=== PATIENT | female | born 1950 | race American Indian/Alaskan Native ===

== ENCOUNTER 2016-12-23 23:19 | Emergency (ER) | payer OTHER ==
[2016-12-24 00:02] VITALS: BP 156/90; PULSE 80; TEMP 98.6; BMI 31.1
[2016-12-24] MEDS ORDERED: ALBUTEROL SO4 2.5/IPRATROPIUM 0.5 INH SOL 3 ML VIAL.NEB. NEB ONE ×4 (01:03→04:50)
--- NOTE | 2016-12-24 01:40 | PDOC ---
History of Present Illness <Tina Ghosh - Last Filed: 12/24/16 01:40> - General History Source: Patient Exam Limitations: No Limitations - History of Present Illness Initial Comments: 12/24/16 01:41 Patient is a 66 year old female with significant past medical history of NIDDM and hypertension who presents to the ED with son complaining of cough, nasal congestion, chest congestion and SOB. Patient reports difficulty taking a deep breath secondary to coughing and sneezing. As per son the patient has been taking Robitussin at home with minimal relief. He notes that the patient is experiencing wheezing during the night. She denies fever, chills, nausea, vomiting, diarrhea and constipation. Surgical hx: none Allergies: none <Gini Sifuentes - Last Filed: 12/24/16 01:41> <Mulu Rivera - Last Filed: 12/24/16 06:43> - General Chief Complaint: Respiratory Stated Complaint: COLD Time Seen by Provider: 12/24/16 00:34 Past History - Past Medical History Diabetes: Yes (NIDDM) HTN: Yes - Psycho/Social/Smoking Cessation Hx Anxiety: No Suicidal Ideation: No Smoking Status: No Smoking History: Never smoked Number of Cigarettes Smoked Daily: 0 Hx Alcohol Use: No Substance Use Type: None <Tina Ghosh - Last Filed: 12/24/16 01:40> <Gini Sifuentes - Last Filed: 12/24/16 01:41> <Mulu Rivera - Last Filed: 12/24/16 06:43> - Past Medical History Allergies/Adverse Reactions: Allergies Allergy/AdvReac Type Severity Reaction Status Date / Time No Known Allergies Allergy Verified 12/23/16 23:35 Home Medications: Ambulatory Orders Ascorbic Acid [Vitamin C] 0 mg PO DAILY 11/21/14 Aspirin [ASA -] 81 mg PO DAILY 11/21/14 Cholecalciferol (Vitamin D3) [Vitamin D] 0 unit PO DAILY 11/21/14 Enalapril Maleate [Vasotec] 20 mg PO DAILY 11/21/14 Hydrochlorothiazide [Hctz -] 25 mg PO DAILY 11/21/14 Metformin HCl [Glucophage] 1,000 mg PO BID 11/21/14 Metoprolol Tartrate [Lopressor -] 25 mg PO BID 11/21/14 Pyridoxine HCl [Vitamin B-6] 0 mg PO DAILY 11/21/14 Ranitidine HCl 150 mg PO BID 11/21/14 Simvastatin [Zocor -] 20 mg PO HS 11/21/14 Review of Systems - Review of Systems Able to Perform ROS?: Yes Comments:: 12/24/16 01:41 CONSTITUTIONAL: Absent: fever, chills, diaphoresis, generalized weakness, malaise, loss of appetite HEENT: Present: nasal congestion Absent: rhinorrhea, throat pain, throat swelling, difficulty swallowing, mouth swelling, ear pain, eye pain, visual Changes CARDIOVASCULAR: Absent: chest pain, syncope, palpitations, irregular heart rate, lightheadedness , peripheral edema RESPIRATORY: Present: cough, SOB, wheezing, chest congestion Absent: dyspnea with exertion, orthopnea, stridor, hemoptysis GASTROINTESTINAL: Absent: abdominal pain, abdominal distension, nausea, vomiting, diarrhea, constipation, melena, hematochezia GENITOURINARY: Absent: dysuria, frequency, urgency, hesitancy, hematuria, flank pain, genital pain MUSCULOSKELETAL: Absent: myalgia, arthralgia, joint swelling SKIN: Absent: rash, itching, pallor HEMATOLOGIC/IMMUNOLOGIC: Absent: easy bleeding, easy bruising, lymphadenopathy, frequent infections ENDOCRINE: Absent: unexplained weight gain, unexplained weight loss, heat intolerance, cold intolerance NEUROLOGIC: Absent: headache, focal weakness or paresthesias, dizziness, unsteady gait, seizure, mental status changes, bladder or bowel incontinence PSYCHIATRIC: Absent: anxiety, depression, suicidal or homicidal ideation, hallucinations. <Gini Sifuentes - Last Filed: 12/24/16 01:41> *Physical Exam - Vital Signs Last Vital Signs Temp Pulse Resp BP Pulse Ox 98.6 F 80 18 156/90 96 12/23/16 23:35 12/23/16 23:35 12/23/16 23:35 12/23/16 23:35 12/23/16 23:35 <Tina Ghosh - Last Filed: 12/24/16 01:40> - Vital Signs Last Vital Signs Temp Pulse Resp BP Pulse Ox 98.6 F 80 18 156/90 96 12/23/16 23:35 12/23/16 23:35 12/23/16 23:35 12/23/16 23:35 12/23/16 23:35 - Physical Exam Comments: 12/24/16 01:42 GENERAL: Well developed, well nourished. Awake and alert. No acute distress. HEENT: Normocephalic, atraumatic. PERRLA, EOMI. No conjunctival pallor. Sclera are non- icteric. Moist mucous membranes. Oropharynx is clear. NECK: Supple. Full ROM. No JVD. Carotid pulses 2+ and symmetric, without bruits. No thyromegaly. No lymphadenopathy. CARDIOVASCULAR: Regular rate and rhythm. No murmurs, rubs, or gallops. Distal pulses are 2+ and symmetric. PULMONARY: No evidence of respiratory distress. Lungs clear to auscultation bilaterally. No wheezing, rales or rhonchi. ABDOMINAL: Soft. Non-tender. Non-distended. No rebound or guarding. No organomegaly. Normoactive bowel sounds. MUSCULOSKELETAL Normal range of motion at all joints. No bony deformities or tenderness. No CVA tenderness. EXTREMITIES: + 2+ pitting edema No cyanosis. No clubbing. No calf tenderness. SKIN: Warm and dry. Normal capillary refill. No rashes. No jaundice. NEUROLOGICAL: Alert, awake, appropriate. Cranial nerves 2-12 intact. No deficits to light touch and temperature in face, upper extremities and lower extremities. No motor deficits in the in face, upper extremities and lower extremities. Normoreflexic in the upper and lower extremities. Normal speech. Toes are down-going bilaterally. Gait is normal without ataxia. PSYCHIATRIC: Cooperative. Good eye contact. Appropriate mood and affect. <Gini Sifuentes - Last Filed: 12/24/16 01:41> - Vital Signs Last Vital Signs Temp Pulse Resp BP Pulse Ox 98.6 F 80 18 156/90 96 12/23/16 23:35 12/23/16 23:35 12/23/16 23:35 12/23/16 23:35 12/23/16 23:35 <Mulu Rivera - Last Filed: 12/24/16 06:43> Heart Score/ECG Review #1 12/24/16 01:[address] Ghosh Normal sinus rhythm at vent. rate of 78 bpm <Gini Sifuentes - Last Filed: 12/24/16 01:41> ED Treatment Course - LABORATORY CBC & Chemistry Diagram: 12/24/16 01:16 12/24/16 01:16 - RADIOLOGY Radiology Studies Ordered: Category Date Time Status CHEST PA & LAT [RAD] Stat Radiology 12/24/16 01:04 Ordered - Medications Given in the ED: ED Medications Discontinued Medications Generic Name Dose Route Start Last Admin Trade Name Freq PRN Reason Stop Dose Admin Albuterol/Ipratropium 1 amp 12/24/16 01:03 12/24/16 01:34 Duoneb - NEB 12/24/16 01:04 1 amp ONCE ONE Administration <AugieTina Veronica - Last Filed: 12/24/16 01:40> - LABORATORY CBC & Chemistry Diagram: 12/24/16 01:16 12/24/16 01:16 - Medications Given in the ED: ED Medications Discontinued Medications Generic Name Dose Route Start Last Admin Trade Name Freq PRN Reason Stop Dose Admin Albuterol/Ipratropium 1 amp 12/24/16 01:03 12/24/16 01:34 Duoneb - NEB 12/24/16 01:04 1 amp ONCE ONE Administration <Gini Sifuentes - Last Filed: 12/24/16 01:41> - LABORATORY CBC & Chemistry Diagram: 12/24/16 01:16 12/24/16 01:16 - ADDITIONAL ORDERS Additional order review: Laboratory Results 12/24/16 01:16 Sodium 136 Potassium 4.0 Chloride 98 Carbon Dioxide 25 Anion Gap 13 BUN 9 Creatinine 0.6 D Creat Clearance w eGFR > 60 Random Glucose 117 H D Calcium 9.0 Total Bilirubin 0.3 AST 21 D ALT 22 Alkaline Phosphatase 63 Total Protein 7.6 Albumin 3.9 12/24/16 01:16 RBC 4.87 MCV 77.3 L MCHC 33.0 RDW 15.3 MPV 9.3 Neutrophils % 56.2 Lymphocytes % 26.8 Monocytes % 8.1 Eosinophils % 7.9 H Basophils % 1.0 - RADIOLOGY Radiology Studies Ordered: Category Date Time Status CHEST CT WITHOUT CONTRAST [CT] Stat CT Scan 12/24/16 02:34 Taken - Medications Given in the ED: ED Medications Discontinued Medications Generic Name Dose Route Start Last Admin Trade Name Freq PRN Reason Stop Dose Admin Albuterol/Ipratropium 1 amp 12/24/16 01:03 12/24/16 01:34 Duoneb - NEB 12/24/16 01:04 1 amp ONCE ONE Administration <Mulu Rivera - Last Filed: 12/24/16 06:43> Medical Decision Making - Medical Decision Making 12/24/16 04:32 Patient Name: Santosh Martinez THIS IS A PRELIMINARYREPORT FROM [facility] EXAM: CT chest without contrast IMAGES: 340 INDICATION: Dry cough and cardiomegaly DATE OF SERVICE: 2016-12-24 03:17:52.0 COMPARISON: none FINDINGS: TheThere is no aortic aneurysm. There is no significant mediastinal or hilar adenopathy. The heart size is borderline enlarged. Aortic and mitral valve calcifications are noted. The trachea and bronchi are patent. There is no pleural or pericardial effusion. There is scattered air trapping but no focal consolidations, mass or nodule. Upper abdominal structures are normal. IMPRESSION: Scattered air-trapping, possibly related to asthma. Borderline cardiomegaly. THIS DOCUMENT HAS BEEN ELECTRONICALLY SIGNED 12/24/16 04:39 I received patient on signout; she came originally with cough and cold. She has a nonspecific CXR so we got a CT chest to evaluate for CHF exacerbation vs early pneumonia; pt has only air trapping; labs are normal, and now we are awaiting a flu culture. 12/24/16 06:42 Flu negative; this is a common cold. Pt treated with an asthma duoneb. SHe wis feeling better and she will be discharged home. <Mulu Rivera - Last Filed: 12/24/16 06:43> *DC/Admit/Observation/Transfer <Tina Ghosh - Last Filed: 12/24/16 01:40> - Attestations Scribe Attestion: 12/24/16 01:44 Documentation prepared by HUNG Joya, acting as medical cost consultant for Tina Ghosh MD. <Gini Sifuentes - Last Filed: 12/24/16 01:41> - Discharge Dispostion Admit: No <Mulu Rivera - Last Filed: 12/24/16 06:43> Diagnosis at time of Disposition: Viral URI - Discharge Dispostion Disposition: HOME Condition at time of disposition: Stable - Patient Instructions Printed Discharge Instructions: Common Cold
[2016-12-24 01:41] LABS: EOSINOPHIL 7.9 % (0-4.5); MCH 25.5 pg (25.7-33.7); MEAN CELL VOLUME 77.3 fl (80-96); MEAN PLT VOLUME 9.3 fl (7.5-11.1); NEUTROPHILS 56.2 % (42.8-82.8); PLATELET COUNT 230 K/MM3 (134-434); RDW 15.3 % (11.6-15.6); WHITE BLOOD COUNT 9.4 K/mm3 (4.0-10.0)
[2016-12-24 02:08] LABS: ALBUMIN 3.9 g/dl (3.4-5.0); ANION GAP 13 (8-16); BILIRUBIN,TOTAL 0.3 mg/dL (0.2-1.0); CO2 25 mmol/L (21-32); CREATININE 0.6 mg/dL (0.55-1.02); GLUCOSE,RANDOM 117 mg/dL (74-106); SGOT/AST 21 U/L (15-37); SGPT/ALT 22 U/L (12-78); TOT PROT 7.6 g/dl (6.4-8.2)
[2016-12-24 02:09] LABS: ALK PHOS 63 U/L (45-117)
[2016-12-24] MEDS ORDERED: FUROSEMIDE 40 MG/4 ML INJECTABLE VIAL ONE (03:05)
[2016-12-24] MEDS ORDERED: FUROSEMIDE 40 MG/4 ML INJECTABLE VIAL IVPB SCH (10:00)
--- NOTE | 2016-12-24 11:02 | EKG ---
Test Reason : Blood Pressure : / mmHG Vent. Rate : 078 BPM Atrial Rate : 078 BPM P-R Int : 148 ms QRS Dur : 082 ms QT Int : 394 ms P-R-T Axes : 040 -29 032 degrees QTc Int : 449 ms NORMAL SINUS RHYTHM WITH SINUS ARRHYTHMIA NORMAL ECG WHEN COMPARED WITH ECG OF 21-NOV-2014 16:16, NO SIGNIFICANT CHANGE WAS FOUND Confirmed by FRAN KIRKPATRICK MD ([id number]) on 12/24/2016 11:02:34 AM Referred By: Confirmed By:FRAN KIRKPATRICK MD
== END 2016-12-24 05:02 | disposition home or self-care (01) ==
LOC: JER 23:19
PROC: 3E0F7GC Introduction of Other Therapeutic Substance into Respiratory Tract, Via Natural or Artificial Opening (ICD-10-PCS; principal; 2016-12-23)
PROC: 3E0F7GC Introduction of Other Therapeutic Substance into Respiratory Tract, Via Natural or Artificial Opening (ICD-10-PCS; 2016-12-23)
DX: J06.9 Acute upper respiratory infection, unspecified (principal); B97.89 Other viral agents as the cause of diseases classified elsewhere
CPT/HCPCS: 36415; 71020-TC; 71250-TC; 80053; 85025; 87804; 93005; 93010; 94640; 99282-25

== ENCOUNTER 2017-05-16 13:52 | Emergency (ER) | payer OTHER ==
[2017-05-16 14:04] VITALS: BP 154/73; PULSE 69; TEMP 97.9; BMI 31.3
--- NOTE | 2017-05-16 16:05 | PDOC ---
History of Present Illness - History of Present Illness Initial Comments: 05/16/17 18:09 Patient is a 66 year old female with significant medical hx of HTN and NIDDM who is presenting to the ED with lightheadedness since 10AM this morning. The patient complains of lightheadedness that feels as if the room is spinning. Her lightheadedness worsens with movement of her head and with standing up; it relieves with lying down. The patient also endorses multiple episodes of nausea and vomiting; she was seen vomiting in the ED. Patient denies any weakness, chest pain, shortness of breath, headache, or abdominal pain. <Coby Khanna - Last Filed: 05/16/17 18:08> <Nickolas Ceja - Last Filed: 05/16/17 19:28> - General Chief Complaint: Lightheaded Stated Complaint: LIGHTHEADED Time Seen by Provider: 05/16/17 16:04 Past History <Coby Khanna - Last Filed: 05/16/17 18:08> - Past Medical History Diabetes: Yes (NIDDM) HTN: Yes - Psycho/Social/Smoking Cessation Hx Anxiety: No Suicidal Ideation: No Smoking Status: No Smoking History: Never smoked Number of Cigarettes Smoked Daily: 0 Hx Alcohol Use: No Substance Use Type: None <Nickolas Ceja - Last Filed: 05/16/17 19:28> - Past Medical History Allergies/Adverse Reactions: Allergies Allergy/AdvReac Type Severity Reaction Status Date / Time No Known Allergies Allergy Verified 05/16/17 14:01 Home Medications: Ambulatory Orders Ascorbic Acid [Vitamin C] 0 mg PO DAILY 11/21/14 Aspirin [ASA -] 81 mg PO DAILY 11/21/14 Cholecalciferol (Vitamin D3) [Vitamin D] 0 unit PO DAILY 11/21/14 Enalapril Maleate [Vasotec] 20 mg PO DAILY 11/21/14 Hydrochlorothiazide [Hctz -] 25 mg PO DAILY 11/21/14 Metformin HCl [Glucophage] 1,000 mg PO BID 11/21/14 Metoprolol Tartrate [Lopressor -] 25 mg PO BID 11/21/14 Pyridoxine HCl [Vitamin B-6] 0 mg PO DAILY 11/21/14 Ranitidine HCl 150 mg PO BID 11/21/14 Simvastatin [Zocor -] 20 mg PO HS 11/21/14 Meclizine HCl 25 mg PO BID #20 tab.chew 05/16/17 Review of Systems - Review of Systems Comments:: 05/16/17 18:09 CONSTITUTIONAL: No fever, no chills, no fatigue EYES: No visual changes ENT: No ear pain, no sore throat CARDIOVASCULAR: No chest pain, no palpitations RESPIRATORY: No cough, no SOB GI: Nausea, vomiting. No abdominal pain, no constipation, no diarrhea GENITOURINARY: No dysuria, no frequency, no hematuria MUSKULOSKELETAL: No backpain, no joint pain, no myalgias SKIN: No rash NEURO: Lightheadedness. No headache <Coby Khanna - Last Filed: 05/16/17 18:08> *Physical Exam - Vital Signs Last Vital Signs Temp Pulse Resp BP Pulse Ox 97.9 F 69 18 154/73 95 05/16/17 14:02 05/16/17 14:02 05/16/17 14:02 05/16/17 14:02 05/16/17 14:02 <Coby Khanna - Last Filed: 05/16/17 18:08> - Vital Signs Last Vital Signs Temp Pulse Resp BP Pulse Ox 97.9 F 69 18 154/73 95 05/16/17 14:02 05/16/17 14:02 05/16/17 14:02 05/16/17 14:02 05/16/17 14:02 - Physical Exam Comments: 05/16/17 18:25 EXAMINATION CONSTITUTIONAL: Well-appearing; well-nourished; in no apparent distress HEAD: Normocephalic; atraumatic EYES: PERRL; EOM intact; no nystagmus ENMT: External appears normal; normal oropharynx NECK: Supple; non-tender; no carotid bruit CARD: Normal S1, S2; no murmurs, rubs, or gallops RESP: Normal chest excursion with respiration; breath sounds clear and equal bilaterally; no wheezes, rhonchi, or rales ABD: Soft, non-distended; non-tender; no palpable organomegaly, no palpable hernias EXT: Normal ROM in all four extremities; non-tender to palpation; distal pulses intact SKIN: Warm, dry, no rash NEURO: cranial nerves ii- XII are grossly intact. Motor is 5 of 54; there is no pronation drift; finger to nose is normal bilaterally; [id number] is normal bilaterally; there is no dysmetria; rapid alternating movements are intact bilaterally; <Nickolas Ceja - Last Filed: 05/16/17 19:28> Heart Score/ECG Review #1 05/16/17 18:11 Poor data quality, interpretation may be adversely affected Normal sinus rhythm at 88 bpm Possible Left atrial enlargement Left axis deviation Abnormal ECG <Coby Khanna - Last Filed: 05/16/17 18:08> ED Treatment Course - LABORATORY CBC & Chemistry Diagram: 05/16/17 Unknown 05/16/17 Unknown - ADDITIONAL ORDERS Additional order review: 05/16/17 Unknown RBC 4.88 MCV 78.3 L MCHC 32.3 RDW 14.4 MPV 9.6 Neutrophils % 76.3 D Lymphocytes % 20.3 D Monocytes % 2.5 L Eosinophils % 0.5 D Basophils % 0.4 - RADIOLOGY Radiograph Interpretation: 05/16/17 18:[address] Impression: No evidence of acute intracranial pathology. Reported By: Isaias Doty MD - Medications Given in the ED: ED Medications Discontinued Medications Generic Name Dose Route Start Last Admin Trade Name Freq PRN Reason Stop Dose Admin Meclizine HCl 25 mg 05/16/17 16:37 05/16/17 17:31 Antivert - PO 05/16/17 16:38 25 mg ONCE ONE Administration <Coby Khanna - Last Filed: 05/16/17 18:08> - LABORATORY CBC & Chemistry Diagram: 05/16/17 Unknown 05/16/17 Unknown <Nickolas Ceja - Last Filed: 05/16/17 19:28> Medical Decision Making - Medical Decision Making 05/16/17 19:25 Patient is a well-appearing 66-year-old female with history of diabetes, hypertension who presents with signs and symptoms of benign positional vertigo. CT of head shows no evidence of acute intracranial pathology. Serial neurological evaluations reveal no focal deficits. There is no evidence of cerebellar dysfunction. Patient feels improved after administration of meclizine. Patient is able to ambulate and is able tolerate by mouth. At this time, I do not believe patient suffers from posterior circulation deficiency. Will discharge with PMD follow-up. <Nickolas Ceja - Last Filed: 05/16/17 19:28> *DC/Admit/Observation/Transfer - Attestations Scribe Attestion: 05/16/17 18:12 Documentation prepared by Coby Khanna, acting as medical affairs director for Nickolas Ceja MD. <Coby Khanna - Last Filed: 05/16/17 18:08> - Attestations Physician Attestion: 05/16/17 18:25 The documentation was prepared by the scribe under my direct supervision. I have reviewed the documentation which correctly represents the findings, medical decision-making and critical action taken by me. <Nickolas Ceja - Last Filed: 05/16/17 19:28> Diagnosis at time of Disposition: Vertigo, Dizziness - Discharge Dispostion Disposition: HOME Condition at time of disposition: Stable - Referrals Referrals: pmd, one week [Other] - Patient Instructions Printed Discharge Instructions: DI for Vertigo
[2017-05-16] MEDS ORDERED: MECLIZINE HCL 25 MG TABLET (FP) PO ONE (16:37)
[2017-05-16] MEDS ORDERED: MECLIZINE HCL 25 MG TABLET (FP) ONE (17:05)
[2017-05-16 17:18] LABS: BASOPHIL 0.4 % (0-2.0); EOSINOPHIL 0.5 % (0-4.5); MCH 25.3 pg (25.7-33.7); MCHC 32.3 g/dl (32.0-36.0); MEAN CELL VOLUME 78.3 fl (80-96); MEAN PLT VOLUME 9.6 fl (7.5-11.1); NEUTROPHILS 76.3 % (42.8-82.8); PLATELET COUNT 244 K/MM3 (134-434); RDW 14.4 % (11.6-15.6); WHITE BLOOD COUNT 10.2 K/mm3 (4.0-10.0)
[2017-05-16 18:20] LABS: ALBUMIN 3.8 g/dl (3.4-5.0); ANION GAP 13 (8-16); CALCIUM 9.1 mg/dL (8.5-10.1); CO2 26 mmol/L (21-32); GLUCOSE,RANDOM 247 mg/dL (74-106)
[2017-05-16 18:23] LABS: ALK PHOS 64 U/L (45-117); BILIRUBIN,TOTAL 0.4 mg/dL (0.2-1.0); CREATININE 0.6 mg/dL (0.55-1.02); SGOT/AST 19 U/L (15-37); SGPT/ALT 21 U/L (12-78); TOT PROT 8.1 g/dl (6.4-8.2)
--- NOTE | 2017-05-17 09:41 | EKG ---
Test Reason : Blood Pressure : / mmHG Vent. Rate : 088 BPM Atrial Rate : 088 BPM P-R Int : 144 ms QRS Dur : 086 ms QT Int : 396 ms P-R-T Axes : 052 -38 060 degrees QTc Int : 479 ms POOR DATA QUALITY, INTERPRETATION MAY BE ADVERSELY AFFECTED NORMAL SINUS RHYTHM POSSIBLE LEFT ATRIAL ENLARGEMENT LEFT AXIS DEVIATION ABNORMAL ECG Confirmed by PRESTON VICK MD ([id number]) on 05/17/2017 9:41:21 AM Referred By: Confirmed By:PRESTON VICK MD
== END 2017-05-16 19:37 | disposition home or self-care (01) ==
LOC: JER 13:52
DX: R42 Dizziness and giddiness (principal); I10 Essential (primary) hypertension; E11.9 Type 2 diabetes mellitus without complications; Z79.84 Long term (current) use of oral hypoglycemic drugs; Z79.82 Long term (current) use of aspirin
CPT/HCPCS: 36415; 70450-TC; 80053; 85025; 93005; 93010; 99282-25

== ENCOUNTER 2018-09-25 16:57 | Emergency (ER) | payer OTHER ==
--- NOTE | 2018-09-25 17:08 | PDOC ---
Rapid Medical Evaluation Chief Complaint: Respiratory Time Seen by Provider: 09/25/18 17:05 Medical Evaluation: Allergies Allergy/AdvReac Type Severity Reaction Status Date / Time No Known Allergies Allergy Verified 05/16/17 14:01 09/25/18 17:06 I have performed a brief in person evaluation of this patient. The patient present with a CC of: "Wheezing" x 3 weeks. Pt is a 67 YO female who states that she has intermittently been febrile with a cough and wheezing. Denies hx of asthma, denies interational travel. Denies smoking. Pertinent PE findings: Lungs Clear Heart: RRR, grade I systolic murmur, no rubs or gallops Abd: Soft, non distended. MS: Moves all extremities without difficulty. Psych: Appropriate affect I have ordered the following: CXR The patient will proceed to the ED for further evaluation: Discharge Disposition - Diagnosis Viral respiratory illness - Referrals - Patient Instructions - Post Discharge Activity
[2018-09-25 17:09] VITALS: BP 169/64; PULSE 83; TEMP 98.4; BMI 31.1
--- NOTE | 2018-09-25 18:26 | PDOC ---
History of Present Illness - General Chief Complaint: Respiratory Stated Complaint: COLD SYMPTOMS Time Seen by Provider: 09/25/18 17:05 History Source: Patient Exam Limitations: No Limitations - History of Present Illness Initial Comments: 09/25/18 18:21 67 yr female history of DM, high cholesterol, HTN presents with 3 weeks cold symptoms, cough now with sinus congestion and facial pain. subjective fever last night. no abd pain or chest pain no travel. 09/25/18 18:27 Severity: reports: mild Past History - Past Medical History Allergies/Adverse Reactions: Allergies Allergy/AdvReac Type Severity Reaction Status Date / Time No Known Allergies Allergy Verified 05/16/17 14:01 Home Medications: Ambulatory Orders Ascorbic Acid [Vitamin C] 0 mg PO DAILY 11/21/14 Aspirin [ASA -] 81 mg PO DAILY 11/21/14 Cholecalciferol (Vitamin D3) [Vitamin D] 0 unit PO DAILY 11/21/14 Enalapril Maleate [Vasotec] 20 mg PO DAILY 11/21/14 Hydrochlorothiazide [Hctz -] 25 mg PO DAILY 11/21/14 Metoprolol Tartrate [Lopressor -] 25 mg PO BID 11/21/14 Pyridoxine HCl [Vitamin B-6] 0 mg PO DAILY 11/21/14 Simvastatin [Zocor -] 20 mg PO HS 11/21/14 metFORMIN HCL [Glucophage] 1,000 mg PO BID 11/21/14 Amoxicillin/Potassium Clav [Augmentin 875-125 Tablet] 1 each PO BID #20 tablet 09/25/18 Fluticasone Prop 0.05% Nasal [Flonase -] 1 - 2 spray NS DAILY #1 spray.pump COPD: No Diabetes: Yes (NIDDM) HTN: Yes - Suicide/Smoking/Psychosocial Hx Smoking Status: No Smoking History: Never smoked Number of Cigarettes Smoked Daily: 0 Hx Alcohol Use: No Substance Use Type: None Respiratory Specific PMHX - Complaint Specific PMHX Angina: No Bronchitis: No Pneumonia: No Pulmonary Embolus: No TB (Tuberculosis): No Review of Systems - Review of Systems Able to Perform ROS?: Yes Is the patient limited Italian proficient: No Constitutional: Yes: Fever. No: Symptoms Reported HEENTM: Yes: Symptoms Reported Respiratory: Yes: Cough *Physical Exam - Vital Signs Last Vital Signs Temp Pulse Resp BP Pulse Ox 98.4 F 83 16 169/64 100 09/25/18 17:07 09/25/18 17:07 09/25/18 17:07 09/25/18 17:07 09/25/18 17:07 - Physical Exam General Appearance: Yes: Nourished, Appropriately Dressed HEENT: positive: EOMI, ANGELICA, Nasal Congestion, Rhinorrhea, Sinus Tenderness ( boggy nasal membranes ) Neck: positive: Supple. negative: Tender, Lymphadenopathy (R), Lymphadenopathy (L) Respiratory/Chest: positive: Lungs Clear, Normal Breath Sounds. negative: Chest Tender Cardiovascular: positive: Regular Rhythm, Regular Rate Gastrointestinal/Abdominal: positive: Normal Bowel Sounds, Soft Musculoskeletal: positive: Normal Inspection Extremity: positive: Normal Capillary Refill, Normal Inspection, Normal Range of Motion Integumentary: positive: Normal Color, Dry, Warm Neurologic: positive: Fully Oriented, Alert, Normal Mood/Affect, Normal Response , Motor Strength 5/5 Medical Decision Making - Medical Decision Making 09/25/18 18:22 cc: cough cold symptoms 3 weeks now with sinus congestion facial pain low grade fever last night worsening facial tenderness boggy nares will treat for acute sinusitus augmentin and flonase dc inst discussed with the patient and her daughter all questions asked and answered 09/25/18 18:27 *DC/Admit/Observation/Transfer Diagnosis at time of Disposition: Viral respiratory illness Acute frontal sinusitis Qualifiers: Recurrence: non-recurrent Qualified Code(s): J01.10 - Acute frontal sinusitis, unspecified - Discharge Dispostion Disposition: HOME Condition at time of disposition: Good - Prescriptions Prescriptions: Amoxicillin/Potassium Clav [Augmentin 875-125 Tablet] 1 each PO BID #20 tablet Fluticasone Prop 0.05% Nasal [Flonase -] 1 - 2 spray NS DAILY #1 spray.pump - Referrals Referrals: Nirav Noel MD [Staff Physician] - - Patient Instructions Additional Instructions: take the medications as prescribed inhale steam either in the bathroom from shower or over a pot of boiled water, be careful not to burn yourself follow with ENT if any worsening symptoms tea with honey and lemon, use Vicks vapor rub to apply as directed to chest and back at bedtime (sold over the counter) return if worse - Post Discharge Activity
== END 2018-09-25 18:39 | disposition home or self-care (01) ==
LOC: JERFT 16:57
DX: J01.10 Acute frontal sinusitis, unspecified (principal); J06.9 Acute upper respiratory infection, unspecified; B97.89 Other viral agents as the cause of diseases classified elsewhere
CPT/HCPCS: 71046-TC-FY; 99281-25

== ENCOUNTER 2018-12-31 13:08 | Emergency (ER) | payer OTHER ==
[2018-12-31 13:29] VITALS: BP 174/91; PULSE 68; TEMP 97.7; BMI 26.4
--- NOTE | 2018-12-31 14:17 | PDOC ---
History of Present Illness - General Chief Complaint: Cold Symptoms Stated Complaint: COUGHING Time Seen by Provider: 12/31/18 14:00 - History of Present Illness Initial Comments: 12/31/18 14:15 68-year-old female with a past medical history significant for diabetes and hypertension presents for evaluation of facial and nose congestion sinus pressure without systemic symptoms times one month Past History - Past Medical History Allergies/Adverse Reactions: Allergies Allergy/AdvReac Type Severity Reaction Status Date / Time No Known Allergies Allergy Verified 05/16/17 14:01 Home Medications: Ambulatory Orders Ascorbic Acid [Vitamin C] 0 mg PO DAILY 11/21/14 Aspirin [ASA -] 81 mg PO DAILY 11/21/14 Cholecalciferol (Vitamin D3) [Vitamin D] 0 unit PO DAILY 11/21/14 Enalapril Maleate [Vasotec] 20 mg PO DAILY 11/21/14 Hydrochlorothiazide [Hctz -] 25 mg PO DAILY 11/21/14 Metoprolol Tartrate [Lopressor -] 25 mg PO BID 11/21/14 Pyridoxine HCl [Vitamin B-6] 0 mg PO DAILY 11/21/14 Simvastatin [Zocor -] 20 mg PO HS 11/21/14 metFORMIN HCL [Glucophage] 1,000 mg PO BID 11/21/14 Amox-Tr/K Cl [Augmentin - 875Mg Tablet] 1 tab PO BID #20 tablet 12/31/18 Budesonide [Rhinocort Allergy] 1 spray NS ONCE #1 spray.pump 12/31/18 COPD: No Diabetes: Yes (NIDDM) HTN: Yes - Surgical History Gastric Stapling: No Neurologic Surgery: No - Immunization History Immunization Up to Date: No - Suicide/Smoking/Psychosocial Hx Smoking Status: No Smoking History: Never smoked Have you smoked in the past 12 months: No Number of Cigarettes Smoked Daily: 0 Information on smoking cessation initiated: No Hx Alcohol Use: No Drug/Substance Use Hx: No Substance Use Type: None Review of Systems - Review of Systems Constitutional: No: Fever HEENTM: Yes: See HPI, Nose Congestion *Physical Exam - Vital Signs Last Vital Signs Temp Pulse Resp BP Pulse Ox 97.7 F 68 16 174/91 H 98 12/31/18 13:17 12/31/18 13:17 12/31/18 13:17 12/31/18 13:17 12/31/18 13:17 - Physical Exam Comments: 12/31/18 14:15 HEAD: NC/AT EYES: Conjuntiva clear Ears: Canals and TM's normal NOSE: Turbinates injected THROAT: Moist mucous membrances, oral pharanx clear, uvula midline NECK: Supple without adenopathy CARDIAC: S1 S2 LUNGS: CTA Full and Equal breath sounds ABDOMEN: Soft NT ND MS: Full ROM in all joints without edema NEUROLOGIC: No gross sensory or motor deficits, NVID SKIN: Normal color and temperature no lesions or rashes Moderate Sedation - Procedure Monitoring Vital Signs: Procedure Monitoring Vital Signs Temperature 97.7 F 12/31/18 13:17 Pulse Rate 68 12/31/18 13:17 Respiratory Rate 16 12/31/18 13:17 Blood Pressure 174/91 H 12/31/18 13:17 O2 Sat by Pulse Oximetry (%) 98 12/31/18 13:17 *DC/Admit/Observation/Transfer Diagnosis at time of Disposition: Acute frontal sinusitis - Discharge Dispostion Disposition: HOME Condition at time of disposition: Stable Decision to Admit order: No - Referrals Referrals: Nirav Noel MD [Staff Physician] - - Patient Instructions Printed Discharge Instructions: Sinusitis, DI for Sinusitis Additional Instructions: Please take the antibiotics as directed and use the nasal spray as directed. Return to the emergency room should symptoms worsen or go unresolved and follow- up with your nose and throat doctor in 1-2 days for further evaluation and treatment options. - Post Discharge Activity
== END 2018-12-31 14:20 | disposition home or self-care (01) ==
LOC: JERFT 13:08
DX: J01.10 Acute frontal sinusitis, unspecified (principal); I10 Essential (primary) hypertension; E11.9 Type 2 diabetes mellitus without complications; Z79.82 Long term (current) use of aspirin; Z79.84 Long term (current) use of oral hypoglycemic drugs
CPT/HCPCS: 99281-25

== ENCOUNTER 2021-02-11 14:28 | Emergency (ER) | payer OTHER ==
[2021-02-11 14:35] VITALS: BP 159/89; PULSE 73; TEMP 99; BMI 31.8
== END 2021-02-11 15:03 | disposition home or self-care (01) ==
LOC: JERFT 14:28 → JER 14:28 → JERFT 15:03
DX: J02.9 Acute pharyngitis, unspecified (principal)
CPT/HCPCS: 99282-25